=== PATIENT | male | born 1990 | race African-American/Black ===

== ENCOUNTER 2016-12-04 16:56 | Inpatient (IN) | payer OTHER ==
[2016-12-04] MEDS ORDERED: Milk Of Magnesia 30 ML UDCUP PO PRN (18:46)
[2016-12-04] MEDS ORDERED: Mag-Al 1200 mg/1200 mg/30 ML UDCUP PO PRN (18:46)
[2016-12-04] MEDS ORDERED: Loperamide HCl 2 MG CAP PO PRN (18:46)
[2016-12-04] MEDS ORDERED: Ondansetron HCl/PF 4 MG/2 ML Vial IVP PRN (18:46)
[2016-12-04] MEDS ORDERED: Sodium Chloride 0.9% 20 ML ONE (20:09)
[2016-12-04] MEDS ORDERED: Divalproex Sodium 125 mg Sprinkle Capsule PO SCH (21:00)
[2016-12-04] MEDS ORDERED: cefTRIAXone\\ROCEPHIN 2 GM VIAL IVPB SCH (21:00)
[2016-12-04] MEDS: Senokot S 8.6-50 MG TAB PO SCH (21:17)
[2016-12-04] MEDS: traMADol HCl 50 MG TAB PO SCH (21:17)
[2016-12-04] MEDS: Amantadine HCl 100 mg Capsule PO SCH (21:17)
[2016-12-04] MEDS: Baclofen 10 MG TAB PO SCH (21:17)
[2016-12-04] MEDS: Gabapentin 300 MG CAP PO SCH (21:17)
[2016-12-04] MEDS: levETIRAcetam 500 MG TAB PO SCH (21:24)
[2016-12-04] MEDS: cefTRIAXone\\ROCEPHIN 2 GM in Sodium Chloride 0.9% 100 ML IVPB SCH (21:24)
[2016-12-04] MEDS: Valproate Sodium 250 mg/5 ml UD Cup PO SCH (21:25)
[2016-12-04] MEDS ORDERED: traZODone HCl 50 MG TAB PO SCH (23:45)
[2016-12-04] MEDS: Acetaminophen 325 MG TAB PO SCH (23:56)
[2016-12-05] MEDS: traMADol HCl 50 MG TAB PO SCH ×4 (03:20→21:18)
[2016-12-05] MEDS ORDERED: Sodium Chloride 0.9% 20 ML ONE (05:09)
[2016-12-05 05:40] LABS: ALT (SGPT) 11 U/L (8-55); AST (SGOT) 12 U/L (5-34); Albumin 3.5 g/dL (3.5-5.0); Alkaline Phosphatase 62 U/L (40-150); Anion Gap 11 mmol/L (10-20); BUN (Urea Nitrogen) 11 mg/dL (8.9-20.6); Bilirubin, Total 0.2 mg/dL (0.2-1.2); Calc. Creatinine Clearance 137 mL/min (70-130); Calcium 9.4 mg/dL (7.8-10.44); Carbon Dioxide 30 mmol/L (22-29); Chloride 104 mmol/L (98-107); Estimated GFR-MDRD Greater than 90; Glucose 99 mg/dL (70-105); Potassium 4.2 mmol/L (3.5-5.1); Protein, Total 6.5 g/dL (6.0-8.3); Sodium 141 mmol/L (136-145)
[2016-12-05] MEDS: Acetaminophen 325 MG TAB PO SCH ×3 (05:40→18:08)
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
[2016-12-05] MEDS: cefTRIAXone\\ROCEPHIN 2 GM in Sodium Chloride 0.9% 100 ML IVPB SCH ×2 (09:05→21:19)
[2016-12-05] MEDS: Sodium Chloride 0.9% 20 ML ONE (09:05)
[2016-12-05] MEDS: Amantadine HCl 100 mg Capsule PO SCH ×2 (09:20→21:18)
[2016-12-05] MEDS: levETIRAcetam 500 MG TAB PO SCH ×2 (09:21→21:18)
[2016-12-05] MEDS: Senokot S 8.6-50 MG TAB PO SCH ×2 (09:21→21:18)
[2016-12-05] MEDS: Gabapentin 300 MG CAP PO SCH ×3 (09:21→21:18)
[2016-12-05] MEDS: Baclofen 10 MG TAB PO SCH ×4 (09:21→21:18)
[2016-12-05] MEDS: Valproate Sodium 250 mg/5 ml UD Cup PO SCH ×2 (09:21→21:21)
[2016-12-05] MEDS: CLOMIPHENE CITRATE 50 MG PO SCH (09:23)
[2016-12-05] MEDS: traZODone HCl 50 MG TAB PO SCH (21:19)
[2016-12-06] MEDS: Acetaminophen 325 MG TAB PO SCH ×4 (00:05→18:06)
[2016-12-06] MEDS: traMADol HCl 50 MG TAB PO SCH ×4 (03:48→20:39)
[2016-12-06] MEDS: Gabapentin 300 MG CAP PO SCH ×3 (08:32→20:41)
[2016-12-06] MEDS: Senokot S 8.6-50 MG TAB PO SCH ×2 (08:33→20:41)
[2016-12-06] MEDS: Amantadine HCl 100 mg Capsule PO SCH ×2 (08:33→20:40)
[2016-12-06] MEDS: Valproate Sodium 250 mg/5 ml UD Cup PO SCH ×2 (08:33→20:42)
[2016-12-06] MEDS: levETIRAcetam 500 MG TAB PO SCH ×2 (08:33→20:41)
[2016-12-06] MEDS: Baclofen 10 MG TAB PO SCH ×4 (08:33→20:40)
[2016-12-06] MEDS: CLOMIPHENE CITRATE 50 MG PO SCH (08:34)
[2016-12-06] MEDS: cefTRIAXone\\ROCEPHIN 2 GM in Sodium Chloride 0.9% 100 ML IVPB SCH ×2 (08:35→20:41)
[2016-12-06] MEDS: Sodium Chloride 0.9% 20 ML ONE (20:42)
[2016-12-06] MEDS: traZODone HCl 50 MG TAB PO SCH (20:42)
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
[2016-12-07] MEDS: Acetaminophen 325 MG TAB PO SCH ×4 (00:32→20:30)
[2016-12-07] MEDS ORDERED: Sodium Chloride 0.9% 10 ML ONE ×2 (05:03→20:28)
[2016-12-07] MEDS: traMADol HCl 50 MG TAB PO SCH ×2 (05:19→09:00)
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
[2016-12-07] MEDS: Valproate Sodium 250 mg/5 ml UD Cup PO SCH ×2 (09:02→20:39)
[2016-12-07] MEDS: Amantadine HCl 100 mg Capsule PO SCH ×2 (09:02→20:32)
[2016-12-07] MEDS: levETIRAcetam 500 MG TAB PO SCH ×2 (09:03→20:33)
[2016-12-07] MEDS: Baclofen 10 MG TAB PO SCH (09:04)
[2016-12-07] MEDS: Gabapentin 300 MG CAP PO SCH ×3 (09:04→20:33)
[2016-12-07] MEDS: Senokot S 8.6-50 MG TAB PO SCH ×2 (09:04→20:32)
[2016-12-07] MEDS: cefTRIAXone\\ROCEPHIN 2 GM in Sodium Chloride 0.9% 100 ML IVPB SCH ×2 (09:05→20:32)
[2016-12-07] MEDS: CLOMIPHENE CITRATE 50 MG PO SCH (14:37)
[2016-12-07] MEDS: traZODone HCl 50 MG TAB PO SCH (20:33)
[2016-12-07] MEDS: traMADol HCl 50 MG TAB PO PRN (20:34)
[2016-12-08] MEDS: Acetaminophen 325 MG TAB PO SCH ×3 (06:06→17:42)
--- NOTE | 2016-12-08 07:43 | PRG ---
DATE OF SERVICE: 12/08/2016 SUBJECTIVE: The patient feels lethargic, but awakens and has monosyllable answers, but appears to b e much more sedated than this weekend. His Ritalin has not been restarted as has his Klonopin, but he is on gabapentin, Keppra, baclofen and Depakote. OBJECTIVE: Shows his valproic acid level is pending. VITAL SIGNS: Vital signs show blood pressure 106/54, temperature 99.6, pulse 93, respirations 18, O 2 sats 92-96%. LUNGS: Lungs are clear. CARDIAC: Cardiac examination shows regular rhythm. SKIN AND EXTREMITIES: Showed no edema. ASSESSMENT: A 26-year-old black male with a traumatic brain injury distantly and a recurrent epidur al infection on Rocephin until 12/22/2016, but who has significantly lethargic and mother is concer samara that this may be due to a medication. PLAN: Discontinue baclofen, check valproic acid level and restart Ritalin and discussed Juanita hardin with family.
[2016-12-08] MEDS ORDERED: Sodium Chloride 0.9% 10 ML ONE ×2 (08:39→20:49)
[2016-12-08] MEDS: Amantadine HCl 100 mg Capsule PO SCH ×2 (08:42→21:23)
[2016-12-08] MEDS: cefTRIAXone\\ROCEPHIN 2 GM in Sodium Chloride 0.9% 100 ML IVPB SCH ×2 (08:42→21:24)
[2016-12-08] MEDS: Valproate Sodium 250 mg/5 ml UD Cup PO SCH ×2 (08:43→21:26)
[2016-12-08] MEDS: Senokot S 8.6-50 MG TAB PO SCH ×2 (08:43→21:25)
[2016-12-08] MEDS: levETIRAcetam 500 MG TAB PO SCH ×2 (08:43→21:24)
[2016-12-08] MEDS: CLOMIPHENE CITRATE 50 MG PO SCH (08:43)
[2016-12-08] MEDS: Gabapentin 300 MG CAP PO SCH ×3 (08:43→21:24)
[2016-12-08] MEDS: traZODone HCl 50 MG TAB PO SCH (21:25)
[2016-12-08] MEDS: traMADol HCl 50 MG TAB PO PRN (21:26)
[2016-12-09] MEDS: Acetaminophen 325 MG TAB PO SCH ×5 (03:10→23:26)
--- NOTE | 2016-12-09 08:24 | PRG ---
DATE OF SERVICE: 12/09/2016 SUBJECTIVE: The patient lying in bed, sleeping, but awakens to verbal conversation, still lethargic despite having muscle relaxants discontinued and only made p.r.n. He is having an appointment with neurosurgeon tomorrow and family will take out on pass. He has been restarted back on his Ritalin with minimal response at this time. OBJECTIVE: Shows, temperature 97, pulse 84, respirations 18, O2 sats 97%, blood pressure 96/54. In take and output is 1780 in and wearing a diaper. LABORATORY DATA: Shows valproic acid level not toxic at 40 and is subtherapeutic for seizure prophy laxis. ASSESSMENT: 1. Epidural abscess, on Rocephin 2 grams IV q.12 hours until 12/22/2016. Will follow up with neuro surgeon tomorrow. 2. Traumatic brain injury, longstanding with persistent lethargy and sedation, on medications and w e will discontinue trazodone that is being given routinely and only make as needed and we will also consider discontinuation of gabapentin after being seen by neurosurgeon.
[2016-12-09] MEDS: Gabapentin 300 MG CAP PO SCH ×3 (08:59→20:44)
[2016-12-09] MEDS: levETIRAcetam 500 MG TAB PO SCH ×2 (09:00→20:44)
[2016-12-09] MEDS: Senokot S 8.6-50 MG TAB PO SCH ×2 (09:00→20:44)
[2016-12-09] MEDS: Valproate Sodium 250 mg/5 ml UD Cup PO SCH ×2 (09:00→20:43)
[2016-12-09] MEDS: Amantadine HCl 100 mg Capsule PO SCH ×2 (09:01→20:44)
[2016-12-09] MEDS: cefTRIAXone\\ROCEPHIN 2 GM in Sodium Chloride 0.9% 100 ML IVPB SCH ×2 (09:01→20:43)
[2016-12-09] MEDS: CLOMIPHENE CITRATE 50 MG PO SCH (10:00)
[2016-12-09] MEDS ORDERED: Sodium Chloride 0.9% 20 ML ONE (20:36)
[2016-12-09] MEDS ORDERED: Sodium Chloride 0.9% 0 ML ONE (20:36)
[2016-12-09] MEDS: Baclofen 10 MG TAB PO PRN (20:44)
[2016-12-09] MEDS: traZODone HCl 50 MG TAB PO PRN (23:25)
[2016-12-10] MEDS: Acetaminophen 325 MG TAB PO SCH ×3 (05:00→17:18)
[2016-12-10] MEDS: cefTRIAXone\\ROCEPHIN 2 GM in Sodium Chloride 0.9% 100 ML IVPB SCH ×2 (05:00→21:04)
[2016-12-10] MEDS: Valproate Sodium 250 mg/5 ml UD Cup PO SCH ×2 (05:02→21:02)
[2016-12-10] MEDS: Senokot S 8.6-50 MG TAB PO SCH ×2 (05:03→21:03)
[2016-12-10] MEDS: Amantadine HCl 100 mg Capsule PO SCH ×2 (05:03→21:04)
[2016-12-10] MEDS: levETIRAcetam 500 MG TAB PO SCH ×2 (05:03→21:02)
[2016-12-10] MEDS: Gabapentin 300 MG CAP PO SCH ×3 (05:03→17:18)
[2016-12-10] MEDS: CLOMIPHENE CITRATE 50 MG PO SCH (05:03)
[2016-12-10] MEDS ORDERED: Sodium Chloride 0.9% 20 ML ONE (19:58)
[2016-12-10] MEDS: traZODone HCl 50 MG TAB PO PRN (22:39)
[2016-12-11] MEDS: Acetaminophen 325 MG TAB PO SCH ×4 (00:26→17:44)
[2016-12-11] MEDS: cefTRIAXone\\ROCEPHIN 2 GM in Sodium Chloride 0.9% 100 ML IVPB SCH ×2 (09:36→21:24)
[2016-12-11] MEDS: Amantadine HCl 100 mg Capsule PO SCH ×2 (09:37→21:26)
[2016-12-11] MEDS: Senokot S 8.6-50 MG TAB PO SCH ×2 (09:37→21:26)
[2016-12-11] MEDS: levETIRAcetam 500 MG TAB PO SCH ×2 (09:37→21:26)
[2016-12-11] MEDS: Gabapentin 300 MG CAP PO SCH ×3 (09:37→21:26)
[2016-12-11] MEDS: CLOMIPHENE CITRATE 50 MG PO SCH (09:37)
[2016-12-11] MEDS: Valproate Sodium 250 mg/5 ml UD Cup PO SCH ×2 (09:40→21:26)
[2016-12-11] MEDS: traZODone HCl 50 MG TAB PO PRN (21:26)
[2016-12-12] MEDS: Acetaminophen 325 MG TAB PO SCH ×4 (01:33→18:24)
[2016-12-12] MEDS: traMADol HCl 50 MG TAB PO PRN (06:40)
[2016-12-12] MEDS: cefTRIAXone\\ROCEPHIN 2 GM in Sodium Chloride 0.9% 100 ML IVPB SCH ×2 (10:14→20:55)
[2016-12-12] MEDS: Valproate Sodium 250 mg/5 ml UD Cup PO SCH ×2 (10:15→20:55)
[2016-12-12] MEDS: CLOMIPHENE CITRATE 50 MG PO SCH (10:16)
[2016-12-12] MEDS: levETIRAcetam 500 MG TAB PO SCH ×2 (10:16→20:56)
[2016-12-12] MEDS: Gabapentin 300 MG CAP PO SCH ×3 (10:17→20:56)
[2016-12-12] MEDS: Senokot S 8.6-50 MG TAB PO SCH ×2 (10:17→20:56)
[2016-12-12] MEDS: Amantadine HCl 100 mg Capsule PO SCH ×2 (10:17→20:56)
[2016-12-12] MEDS ORDERED: Sodium Chloride 0.9% 10 ML ONE (12:00)
--- NOTE | 2016-12-12 17:47 | PRG ---
DATE OF SERVICE: 12/10/2016 SUBJECTIVE: The patient returned late tonight after visit to [facility] with no referri physician, but the family states there is no change with any of his medications and physician is approval of his progress. The patient is sitting up in the chair, eating slowly with his family. OBJECTIVE: VITAL SIGNS: Blood pressure is 105/58, temperature 96, pulse 79, respirations 18, O2 sats 98%. LUNGS: Clear. CARDIAC: Examination shows regular rhythm. ABDOMEN: Soft, nontender. Incision on craniotomy is healing well with no drainage. No laboratory is available from [facility]. ASSESSMENT: 1. Resolving epidural abscess, on Rocephin 2 gram IV q.12 h. until 12/22/2016. 2. Traumatic brain injury, chronic, with persistent lethargy and sedation, appears to be improved s jose alfredo off trazodone and will discuss gabapentin with family.
--- NOTE | 2016-12-12 17:48 | PRG ---
DATE OF SERVICE: 12/11/2016 SUBJECTIVE: The patient is lying in the bed, resting well. No complaints and no therapy today. OBJECTIVE: VITAL SIGNS: Shows a temperature of 96.8, pulse 76, respirations 18, O2 sats 98% and blood pressure 112/60. LUNGS: Clear. CARDIAC: Showed regular rhythm. ABDOMEN: Soft and nontender. SKIN AND EXTREMITIES: Display no edema, clubbing or cyanosis. ASSESSMENT AND PLAN: A 26-year-old black male with a traumatic brain injury, recurrent epidural inf ection on Rocephin until 12/22/2016. He appears to be slightly improved today, is off trazodone and baclofen and on Ritalin and will continue therapy and discuss followup with the results with Chad and Leilani with family.
[2016-12-12] MEDS: traZODone HCl 50 MG TAB PO PRN (20:56)
[2016-12-13] MEDS: Acetaminophen 325 MG TAB PO SCH ×4 (04:04→17:17)
--- NOTE | 2016-12-13 08:23 | PRG ---
DATE OF SERVICE: 12/12/2016 SUBJECTIVE: The patient was sitting up in the bed, awake, responds appropriately with monosyllables , but appears to be much more alert since discontinued his phenobarbital. OBJECTIVE: VITAL SIGNS: Blood pressure is 108/61, temperature 98, pulse 75, respirations 16, O2 sat 98%. LABO RATORY: Laboratory shows no recent change. We will repeat in the a.m. It was done at [place] and [facility], but no results available. LUNGS: Lungs are clear. CARDIAC: Cardiac examination shows regular rhythm. ABDOMEN: Abdomen is soft and nontender. Craniotomy scar appears to be healed well. ASSESSMENT: 1. Resolving epidural abscess on IV Rocephin until 12/23/2015. 2. Traumatic brain injury with improved functional status post discontinuation of phenobarbital. 3. Bipolar disorder, appears to be stable on clomiphene. PLAN: Repeat CBC, comp metabolic in the a.m. Continue PT, OT. Continue Rocephin until 12/23/2015.
[2016-12-13] MEDS ORDERED: Sodium Chloride 0.9% 20 ML ONE ×2 (08:26→21:33)
[2016-12-13] MEDS: Amantadine HCl 100 mg Capsule PO SCH ×2 (08:39→20:42)
[2016-12-13] MEDS: cefTRIAXone\\ROCEPHIN 2 GM in Sodium Chloride 0.9% 100 ML IVPB SCH ×2 (08:40→20:43)
[2016-12-13] MEDS: traMADol HCl 50 MG TAB PO PRN (08:42)
[2016-12-13] MEDS: levETIRAcetam 500 MG TAB PO SCH ×2 (08:43→20:42)
[2016-12-13] MEDS: Senokot S 8.6-50 MG TAB PO SCH ×2 (08:43→20:42)
[2016-12-13] MEDS: Gabapentin 300 MG CAP PO SCH ×3 (08:43→20:42)
[2016-12-13] MEDS: CLOMIPHENE CITRATE 50 MG PO SCH (08:43)
[2016-12-13] MEDS: Valproate Sodium 250 mg/5 ml UD Cup PO SCH ×2 (08:44→20:42)
[2016-12-13 10:59] LABS: #Basophils 0.2 thou/uL (0.0-0.2); #Eosinphils 0.2 thou/uL (0.0-0.7); #Lymphocytes 1.3 thou/uL (1.20-3.40); #Monocytes 0.6 thou/uL (0.11-0.59); #Neutrophils 3.7 thou/uL (1.40-6.50); %Basophils 2.7 % (0.0-1.0); %Eosinophils 3.2 % (0.0-10.0); %Monocytes 10.7 % (0.0-10.0); %Neutrophils 62.4 % (42.0-75.0); Hemoglobin 13.7 g/dL (14.0-18.0); Mean Corpuscular HGB CONC 31.7 g/dL (32.0-36.0); Mean Corpuscular Hemoglobin 29.8 pg (27.0-31.0); Mean Corpuscular Volume 94.1 fl (80.0-94.0); Mean Platelet Volume 10.4 fL (7.4-10.4); Platelet Count 245 thou/uL (130-400); RBC Distribution Width 12.3 % (11.5-14.5); Red Blood Cell (RBC) Count 4.58 mill/uL (4.70-6.10)
[2016-12-13 11:21] LABS: ALT (SGPT) 27 U/L (8-55); AST (SGOT) 18 U/L (5-34); Albumin 4.2 g/dL (3.5-5.0); Alkaline Phosphatase 79 U/L (40-150); Anion Gap 16 mmol/L (10-20); BUN (Urea Nitrogen) 15 mg/dL (8.9-20.6); Bilirubin, Total 0.2 mg/dL (0.2-1.2); Calc. Creatinine Clearance 118 mL/min (70-130); Carbon Dioxide 28 mmol/L (22-29); Chloride 102 mmol/L (98-107); Estimated GFR-MDRD Greater than 90; Globulin 3.8 g/dL (2.4-3.5); Glucose 96 mg/dL (70-105); Potassium 4.7 mmol/L (3.5-5.1); Sodium 141 mmol/L (136-145)
[2016-12-13] MEDS: traZODone HCl 50 MG TAB PO PRN (20:44)
[2016-12-14] MEDS: Acetaminophen 325 MG TAB PO SCH ×4 (00:13→18:00)
[2016-12-14] MEDS: cefTRIAXone\\ROCEPHIN 2 GM in Sodium Chloride 0.9% 100 ML IVPB SCH ×2 (08:43→19:59)
[2016-12-14] MEDS: CLOMIPHENE CITRATE 50 MG PO SCH (08:43)
[2016-12-14] MEDS: Valproate Sodium 250 mg/5 ml UD Cup PO SCH ×2 (08:44→20:00)
[2016-12-14] MEDS: Senokot S 8.6-50 MG TAB PO SCH ×2 (08:44→20:00)
[2016-12-14] MEDS: Gabapentin 300 MG CAP PO SCH ×3 (08:44→20:00)
[2016-12-14] MEDS: levETIRAcetam 500 MG TAB PO SCH ×2 (08:44→20:00)
[2016-12-14] MEDS: Amantadine HCl 100 mg Capsule PO SCH ×2 (08:44→20:01)
--- NOTE | 2016-12-14 11:34 | PRG ---
DATE OF SERVICE: 12/14/2016 SUBJECTIVE: The patient feels same. He is more awake, alert, however, talking on his phone and eat ing, but not cooperating much with therapy. 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 Did appear to be responding and maybe close to his baseline mental statu s. OBJECTIVE: LUNGS: Clear. CARDIAC EXAMINATION: Shows regular rhythm. NEUROLOGY: Craniotomy incision healing well. LABORATORY: White count yesterday was 6000, hematocrit 43, and hemoglobin 13. Sodium was 141, pota ssium 4.7, chloride 102, bicarbonate 28, BUN 15, and creatinine 0.94. Liver functions normal. ASSESSMENT: 1. Resolving epidural abscess, on IV Rocephin until 12/22/2016. 2. Stable traumatic in brain injury, improved function, appears to be close to baseline. 3. Bipolar disorder, stable on clomiphene. PLAN: Continue physical therapy and occupational therapy. Continue Rocephin until 12/22/2016. Dis cussed discharge planning with family.
[2016-12-14] MEDS: traZODone HCl 50 MG TAB PO PRN (20:03)
[2016-12-15] MEDS: Acetaminophen 325 MG TAB PO SCH ×4 (01:08→18:04)
[2016-12-15] MEDS: cefTRIAXone\\ROCEPHIN 2 GM in Sodium Chloride 0.9% 100 ML IVPB SCH ×2 (08:53→21:26)
[2016-12-15] MEDS: Valproate Sodium 250 mg/5 ml UD Cup PO SCH ×2 (08:55→21:28)
[2016-12-15] MEDS: Gabapentin 300 MG CAP PO SCH ×3 (08:57→21:28)
[2016-12-15] MEDS: CLOMIPHENE CITRATE 50 MG PO SCH (08:57)
[2016-12-15] MEDS: levETIRAcetam 500 MG TAB PO SCH ×2 (08:57→21:28)
[2016-12-15] MEDS: Senokot S 8.6-50 MG TAB PO SCH ×2 (08:57→21:28)
[2016-12-15] MEDS: Amantadine HCl 100 mg Capsule PO SCH ×2 (08:57→21:28)
[2016-12-16] MEDS: Acetaminophen 325 MG TAB PO SCH ×5 (00:04→20:31)
--- NOTE | 2016-12-16 07:23 | PRG ---
DATE OF SERVICE: 12/15/2016 SUBJECTIVE: The patient feels well, sitting up in the bed eating breakfast, responding only with a few words, short sentences. OBJECTIVE: VITAL SIGNS: Temperature 97.8, pulse 84, respirations 18, O2 saturation 98%, blood pressure 99/55. Laminectomy and craniotomy scar appears to be healing well. LUNGS: Lungs are clear. CARDIAC: Cardiac examination shows regular rhythm. PT states that the patient is still requiring maximum total assist for standing frame and will nicholas nue on therapy until antibiotics finished and then facilitate possible transfer back to her [facility] neuro unit.
--- NOTE | 2016-12-16 08:17 | PRG ---
DATE OF SERVICE: 12/16/2016 SUBJECTIVE: The patient feels the same, sitting up in bed, sleeping, but awakens easily. No compla ints, but is basically minimally verbal. OBJECTIVE: VITAL SIGNS: Temperature is 97.4, pulse 68, respirations 16, O2 sats 99, blood pressure 116/64. LABORATORY: Laboratory shows white count 6000, hematocrit 43, hemoglobin 13. Most recent chemistri es several days ago were normal. NEUROLOGICAL: Craniotomy scar healing well. Neurological shows diffuse weakness, but no focal find ings. ASSESSMENT: 1. Resolving traumatic brain injury with epidural abscess, on IV Rocephin until December 22, 2016. 2. Underlying bipolar disorder, stable on Klonopin. 3. Seizure disorder, controlled with valproic acid. PLAN: Continue Rocephin until December 22. Discussed discharge planning and transfer to neuro [facility] t after discharge.
[2016-12-16] MEDS ORDERED: Sodium Chloride 0.9% 20 ML ONE (09:12)
[2016-12-16] MEDS: Gabapentin 300 MG CAP PO SCH ×3 (10:12→20:30)
[2016-12-16] MEDS: CLOMIPHENE CITRATE 50 MG PO SCH (10:12)
[2016-12-16] MEDS: Valproate Sodium 250 mg/5 ml UD Cup PO SCH ×2 (10:12→20:31)
[2016-12-16] MEDS: Senokot S 8.6-50 MG TAB PO SCH ×2 (10:12→20:31)
[2016-12-16] MEDS: Amantadine HCl 100 mg Capsule PO SCH ×2 (10:15→20:29)
[2016-12-16] MEDS: cefTRIAXone\\ROCEPHIN 2 GM in Sodium Chloride 0.9% 100 ML IVPB SCH ×2 (10:15→20:30)
[2016-12-16] MEDS: levETIRAcetam 500 MG TAB PO SCH ×2 (10:15→20:30)
[2016-12-16] MEDS ORDERED: Sodium Chloride 0.9% 10 ML ONE (20:24)
[2016-12-16] MEDS: traMADol HCl 50 MG TAB PO PRN (20:31)
[2016-12-17] MEDS: Acetaminophen 325 MG TAB PO SCH ×4 (06:26→23:46)
[2016-12-17] MEDS: Valproate Sodium 250 mg/5 ml UD Cup PO SCH ×2 (09:47→21:21)
[2016-12-17] MEDS: cefTRIAXone\\ROCEPHIN 2 GM in Sodium Chloride 0.9% 100 ML IVPB SCH ×2 (09:47→21:03)
[2016-12-17] MEDS: Gabapentin 300 MG CAP PO SCH ×3 (09:48→21:21)
[2016-12-17] MEDS: Senokot S 8.6-50 MG TAB PO SCH ×2 (09:48→21:22)
[2016-12-17] MEDS: CLOMIPHENE CITRATE 50 MG PO SCH (09:48)
[2016-12-17] MEDS: Amantadine HCl 100 mg Capsule PO SCH ×2 (09:48→21:22)
[2016-12-17] MEDS: levETIRAcetam 500 MG TAB PO SCH ×2 (09:48→21:22)
--- NOTE | 2016-12-17 10:27 | PRG ---
DATE OF SERVICE: 12/17/2016 SUBJECTIVE: The patient feels well, working with therapy today. No complaints, no real change. OBJECTIVE: VITAL SIGNS: Shows temperature is 97, pulse 63, respirations 16, O2 sats 99%, and blood pressure 11 1/73. LUNGS: Clear. CARDIAC: Examination showed regular rhythm. Craniotomy scar is healing well. NEUROLOGIC: Shows no change. ASSESSMENT: 1. Resolving epidural abscess, on Rocephin until 11/21/2016. 2. Stable traumatic brain injury with improving cooperation since discontinued phenobarbital. 3. Recurrent seizures. No evidence for recurrence, only on valproic acid. 4. Previous history of bipolar disorder, stable. PLAN: Continue PT, OT. Continue IV Rocephin until 12/22/2016.
[2016-12-17] MEDS: traZODone HCl 50 MG TAB PO PRN (21:21)
[2016-12-18] MEDS: Acetaminophen 325 MG TAB PO SCH ×4 (05:47→21:32)
[2016-12-18] MEDS: Sodium Chloride 0.9% 20 ML ONE (07:30)
[2016-12-18 07:35] LABS: #Basophils 0.1 thou/uL (0.0-0.2); #Eosinphils 0.3 thou/uL (0.0-0.7); #Lymphocytes 1.4 thou/uL (1.20-3.40); #Monocytes 0.7 thou/uL (0.11-0.59); %Basophils 1.6 % (0.0-1.0); %Eosinophils 3.9 % (0.0-10.0); %Lymphocytes 21.8 % (21.0-51.0); %Monocytes 10.9 % (0.0-10.0); %Neutrophils 61.9 % (42.0-75.0); Hemoglobin 13.4 g/dL (14.0-18.0); Mean Corpuscular HGB CONC 31.3 g/dL (32.0-36.0); Mean Corpuscular Hemoglobin 29.5 pg (27.0-31.0); Mean Corpuscular Volume 94.2 fl (80.0-94.0); Mean Platelet Volume 9.8 fL (7.4-10.4); Platelet Count 217 thou/uL (130-400); RBC Distribution Width 12.5 % (11.5-14.5); Red Blood Cell (RBC) Count 4.56 mill/uL (4.70-6.10); White Blood Cell (WBC) Count 6.5 thou/uL (4.8-10.8)
[2016-12-18 07:55] LABS: ALT (SGPT) 21 U/L (8-55); AST (SGOT) 14 U/L (5-34); Albumin 3.9 g/dL (3.5-5.0); Alkaline Phosphatase 75 U/L (40-150); Anion Gap 13 mmol/L (10-20); BUN (Urea Nitrogen) 18 mg/dL (8.9-20.6); Bilirubin, Total 0.3 mg/dL (0.2-1.2); Calc. Creatinine Clearance 122 mL/min (70-130); Calcium 9.8 mg/dL (7.8-10.44); Carbon Dioxide 30 mmol/L (22-29); Chloride 104 mmol/L (98-107); Estimated GFR-MDRD Greater than 90; Globulin 3.6 g/dL (2.4-3.5); Glucose 100 mg/dL (70-105); Potassium 4.4 mmol/L (3.5-5.1); Protein, Total 7.5 g/dL (6.0-8.3); Sodium 143 mmol/L (136-145)
[2016-12-18] MEDS: Valproate Sodium 250 mg/5 ml UD Cup PO SCH ×2 (08:50→21:32)
[2016-12-18] MEDS: Senokot S 8.6-50 MG TAB PO SCH ×2 (08:51→21:32)
[2016-12-18] MEDS: Gabapentin 300 MG CAP PO SCH ×3 (08:51→21:32)
[2016-12-18] MEDS: CLOMIPHENE CITRATE 50 MG PO SCH (08:51)
[2016-12-18] MEDS: Amantadine HCl 100 mg Capsule PO SCH ×2 (08:51→21:32)
[2016-12-18] MEDS: levETIRAcetam 500 MG TAB PO SCH ×2 (08:51→21:32)
[2016-12-18] MEDS: cefTRIAXone\\ROCEPHIN 2 GM in Sodium Chloride 0.9% 100 ML IVPB SCH ×2 (08:52→21:31)
[2016-12-18] MEDS: traZODone HCl 50 MG TAB PO PRN (21:32)
[2016-12-19] MEDS: Acetaminophen 325 MG TAB PO SCH ×4 (06:13→21:09)
[2016-12-19] MEDS: cefTRIAXone\\ROCEPHIN 2 GM in Sodium Chloride 0.9% 100 ML IVPB SCH ×2 (08:35→21:03)
[2016-12-19] MEDS: Valproate Sodium 250 mg/5 ml UD Cup PO SCH ×2 (08:36→21:07)
[2016-12-19] MEDS: Sodium Chloride 0.9% 20 ML ONE (08:36)
[2016-12-19] MEDS: levETIRAcetam 500 MG TAB PO SCH ×2 (08:37→21:07)
[2016-12-19] MEDS: Senokot S 8.6-50 MG TAB PO SCH ×2 (08:37→21:07)
[2016-12-19] MEDS: Amantadine HCl 100 mg Capsule PO SCH ×2 (08:37→21:07)
[2016-12-19] MEDS: CLOMIPHENE CITRATE 50 MG PO SCH (08:37)
[2016-12-19] MEDS: Gabapentin 300 MG CAP PO SCH ×3 (08:37→21:07)
[2016-12-19] MEDS: Baclofen 10 MG TAB PO PRN (11:52)
--- NOTE | 2016-12-19 16:20 | PRG ---
DATE OF SERVICE: 12/18/2016 SUBJECTIVE: Patient feels well, lying in bed, no complaints, rested well through the night. Family is asking to take him out on pass today today to visit his grandfather. OBJECTIVE: VITAL SIGNS: Shows temperature 97.8, pulse 63, respirations 16, O2 sats 99%. LUNGS: Clear. CARDIAC EXAMINATION: Shows regular rhythm. ABDOMEN: Soft and nontender. Craniotomy scar is healing well. NEUROLOGICAL: Shows no change with slow, retarded responses to questions, diffusely decreased stren gth, and left-sided weakness. LABORATORY DATA: Shows white count 6500, hematocrit 43, hemoglobin 13, platelet 270. Sodium 143, p otassium 4.4, chloride 104, bicarb 30, BUN 18, creatinine 0.91. ASSESSMENT: 1. Epidural abscess, improving on Rocephin until December 22, 2016. 2. Status post traumatic brain injury with persistent neurological deficits and cognitive defects a ppears to be stabilizing. 3. History of bipolar disorder, controlled on clomiphene. 4. Seizure disorder, controlled on valproic acid.
--- NOTE | 2016-12-19 16:20 | PRG ---
DATE OF SERVICE: 12/19/2016 SUBJECTIVE: The patient feels well, sitting up in a chair, speaking amount of sentences, asking whe n he can be discharged home, was out on pass yesterday with family and did well. OBJECTIVE: Shows, VITAL SIGNS: Temperature is 98, pulse 72, respirations 18, O2 sats 97%, blood pressure 102/62. LUNGS: Clear. CARDIAC EXAMINATION: Shows regular rhythm. ASSESSMENT: 1. Resolving epidural abscess. 2. Stable traumatic brain injury. 3. Stable seizure disorder with no recurrence. 4. Stable bipolar disorder. PLAN: Continue IV Rocephin until December 22 and transfer back to neurological unit.
[2016-12-19 17:18] VITALS: BMI 25.9
[2016-12-19] MEDS: traZODone HCl 50 MG TAB PO PRN (21:07)
[2016-12-20] MEDS: Acetaminophen 325 MG TAB PO SCH ×4 (06:05→22:36)
[2016-12-20] MEDS: cefTRIAXone\\ROCEPHIN 2 GM in Sodium Chloride 0.9% 100 ML IVPB SCH ×2 (10:01→21:36)
[2016-12-20] MEDS: Gabapentin 300 MG CAP PO SCH ×3 (10:02→21:38)
[2016-12-20] MEDS: Senokot S 8.6-50 MG TAB PO SCH ×2 (10:02→21:38)
[2016-12-20] MEDS: Amantadine HCl 100 mg Capsule PO SCH ×2 (10:02→21:38)
[2016-12-20] MEDS: CLOMIPHENE CITRATE 50 MG PO SCH (10:02)
[2016-12-20] MEDS: Valproate Sodium 250 mg/5 ml UD Cup PO SCH ×2 (10:02→21:37)
[2016-12-20] MEDS: levETIRAcetam 500 MG TAB PO SCH ×2 (10:02→21:42)
[2016-12-20] MEDS ORDERED: Sodium Chloride 0.9% 10 ML ONE (11:38)
--- NOTE | 2016-12-20 17:51 | PRG ---
DATE OF SERVICE: 12/20/2016 SUBJECTIVE: The patient feels same, sitting up in the chair, eating, having 1-2 sentences responses , has been cooperating somewhat with PT, but is only able to sit to stand with 2 person assist and w alk 11 feet with ataxic gait with scissoring with standby assistance and cueing. Craniotomy scar is healing well. OBJECTIVE: LUNGS: Clear. CARDIAC: Examination shows regular rhythm. ABDOMEN: Soft and nontender. SKIN AND EXTREMITIES: Showed no edema. ASSESSMENT: 1. Resolving epidural abscess on Rocephin until 12/26/2016 by calculation of 1-month therapy at [facility] s time. 2. Severe traumatic brain injury, status post craniotomy with improvement since admission, decrease d lethargy, but still significant deficits, both cognitive and physical. PLAN: Continue Rocephin until 12/26/2016. Discussed discharge planning with family. Continue PT, OT.
[2016-12-20] MEDS: traZODone HCl 50 MG TAB PO PRN (22:36)
[2016-12-21] MEDS: Acetaminophen 325 MG TAB PO SCH ×4 (05:46→20:55)
[2016-12-21] MEDS: Valproate Sodium 250 mg/5 ml UD Cup PO SCH ×2 (09:00→20:55)
[2016-12-21] MEDS: Amantadine HCl 100 mg Capsule PO SCH ×2 (09:00→20:55)
[2016-12-21] MEDS: CLOMIPHENE CITRATE 50 MG PO SCH (09:01)
[2016-12-21] MEDS: levETIRAcetam 500 MG TAB PO SCH ×2 (09:01→20:55)
[2016-12-21] MEDS: Gabapentin 300 MG CAP PO SCH ×3 (09:01→20:55)
[2016-12-21] MEDS: Senokot S 8.6-50 MG TAB PO SCH ×2 (09:01→20:55)
[2016-12-21] MEDS: cefTRIAXone\\ROCEPHIN 2 GM in Sodium Chloride 0.9% 100 ML IVPB SCH ×2 (09:02→20:53)
[2016-12-21] MEDS ORDERED: Gabapentin 300 MG CAP ONE (13:34)
[2016-12-21] MEDS ORDERED: Acetaminophen 325 MG TAB ONE (14:07)
[2016-12-21] MEDS ORDERED: traMADol HCl 50 MG TAB ONE (15:40)
[2016-12-21] MEDS: traZODone HCl 50 MG TAB PO PRN (20:56)
[2016-12-22] MEDS: Acetaminophen 325 MG TAB PO SCH ×3 (06:16→17:33)
--- NOTE | 2016-12-22 06:28 | PRG ---
DATE OF SERVICE: 12/21/2016 SUBJECTIVE: The patient feels well, sitting up in bed, not responding initially, but then when told he would be going home in the next several days, he asks when. OBJECTIVE: VITAL SIGNS: Blood pressure is 101/56, temperature 96, pulse 65, respirations 16, O2 sat 99%. LUNGS: Lungs are clear. CARDIAC: Cardiac examination shows regular rhythm. ABDOMEN: Abdomen is soft and nontender. SKIN AND EXTREMITIES: Skin and extremities display no edema, clubbing, cyanosis. There is healing craniotomy scars right side of the scalp. ASSESSMENT: 1. Resolving epidural abscess on Rocephin until 12/26/2016. 2. Severe traumatic brain injury, status post craniotomy with improvement and lethargy, but still s ignificant cognitive and physical defects. PLAN: Continue Rocephin until 12/26/2016, discharge planning to arrange facility at that time.
[2016-12-22] MEDS ORDERED: Sodium Chloride 0.9% 20 ML ONE ×2 (08:17→21:58)
[2016-12-22] MEDS: Gabapentin 300 MG CAP PO SCH ×3 (09:07→22:00)
[2016-12-22] MEDS: Valproate Sodium 250 mg/5 ml UD Cup PO SCH ×2 (09:07→21:59)
[2016-12-22] MEDS: Amantadine HCl 100 mg Capsule PO SCH ×2 (09:07→22:00)
[2016-12-22] MEDS: Senokot S 8.6-50 MG TAB PO SCH ×2 (09:07→22:00)
[2016-12-22] MEDS: levETIRAcetam 500 MG TAB PO SCH ×2 (09:07→22:00)
[2016-12-22] MEDS: cefTRIAXone\\ROCEPHIN 2 GM in Sodium Chloride 0.9% 100 ML IVPB SCH ×2 (09:08→22:00)
[2016-12-22] MEDS: CLOMIPHENE CITRATE 50 MG PO SCH (09:08)
[2016-12-22] MEDS: traMADol HCl 50 MG TAB PO PRN (23:10)
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
[2016-12-23] MEDS: Acetaminophen 325 MG TAB PO SCH ×4 (05:33→17:00)
[2016-12-23] MEDS ORDERED: Sodium Chloride 0.9% 20 ML ONE (07:52)
[2016-12-23] MEDS: Amantadine HCl 100 mg Capsule PO SCH ×2 (08:36→20:48)
--- NOTE | 2016-12-23 08:36 | PRG ---
DATE OF SERVICE: 12/23/2016 SUBJECTIVE: The patient feels same, sleeping, but awakens easily and responds to questions with mon osyllables, appears to be in no distress. OBJECTIVE: VITAL SIGNS: Shows blood pressure is 95/40, temperature 97, pulse 65, respirations 20, and O2 sats is 96%. LUNGS: Clear. CARDIAC: Examination showed regular rhythm. ABDOMEN: Soft and nontender. NEUROLOGIC: Shows some spasticity with mild weakness on the left side. LABORATORY DATA: CT scan does show old fluid collection with pockets of air consistent with abscess , but no evidence of acute bleeding. ASSESSMENT: 1. Stable CT scan after a recent fall with no evidence of injury. 2. Resolving epidural abscess. 3. Stable traumatic brain injury. PLAN: Continue IV Rocephin until 12/26/2016. Continue PT, OT. Continue fall precautions.
[2016-12-23] MEDS: CLOMIPHENE CITRATE 50 MG PO SCH (08:37)
[2016-12-23] MEDS: Gabapentin 300 MG CAP PO SCH ×3 (08:37→20:48)
[2016-12-23] MEDS: cefTRIAXone\\ROCEPHIN 2 GM in Sodium Chloride 0.9% 100 ML IVPB SCH ×2 (08:37→20:47)
[2016-12-23] MEDS: Senokot S 8.6-50 MG TAB PO SCH ×2 (08:37→20:49)
[2016-12-23] MEDS: levETIRAcetam 500 MG TAB PO SCH ×2 (08:37→20:49)
--- NOTE | 2016-12-23 08:41 | PRG ---
DATE OF SERVICE: 12/22/2016 SUBJECTIVE: The patient lying in bed, awakens easily, in no distress, has been eating well, not com plaining of any pain, nausea, vomiting. OBJECTIVE: Shows, VITAL SIGNS: Blood pressure is 103/61, temperature is 97, pulse 68, respirations 18, O2 sat is 96%. LUNGS: Clear. CARDIAC EXAMINATION: Shows regular rhythm. ABDOMEN: Soft, nontender. NEUROLOGICAL: Shows some mild left-sided weakness, discoordination, decreased responsiveness with a nswering only in mono syllables. ASSESSMENT: 1. Resolving epidural abscess, on IV Rocephin, until 12/26/2016. 2. 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 3. History of bipolar disorder, stable on medications. PLAN: Continue IV Rocephin until 12/26/2016. Continue PT and OT as tolerated and make arrangements for transfer to neuro unit after IV antibiotics finished.
[2016-12-23] MEDS: Valproate Sodium 250 mg/5 ml UD Cup PO SCH ×3 (09:51→21:17)
[2016-12-23] MEDS ORDERED: Sodium Chloride 0.9% 10 ML ONE (20:41)
[2016-12-24] MEDS: Acetaminophen 325 MG TAB PO SCH ×5 (00:16→23:14)
[2016-12-24] MEDS ORDERED: Sodium Chloride 0.9% 20 ML ONE ×3 (08:09→18:40)
[2016-12-24] MEDS: Valproate Sodium 250 mg/5 ml UD Cup PO SCH ×2 (09:31→21:27)
[2016-12-24] MEDS: CLOMIPHENE CITRATE 50 MG PO SCH (09:32)
[2016-12-24] MEDS: Amantadine HCl 100 mg Capsule PO SCH ×2 (09:32→21:27)
[2016-12-24] MEDS: Gabapentin 300 MG CAP PO SCH ×3 (09:32→21:27)
[2016-12-24] MEDS: cefTRIAXone\\ROCEPHIN 2 GM in Sodium Chloride 0.9% 100 ML IVPB SCH ×2 (09:33→21:28)
[2016-12-24] MEDS: levETIRAcetam 500 MG TAB PO SCH ×2 (09:33→21:27)
[2016-12-24] MEDS: Senokot S 8.6-50 MG TAB PO SCH ×2 (09:34→21:27)
--- NOTE | 2016-12-24 09:53 | PRG ---
DATE OF SERVICE: 12/24/2016 SUBJECTIVE: The patient is sleeping well with no complaints, awakens easily, in no distress. OBJECTIVE: VITAL SIGNS: Blood pressure 112/61, temperature 97, pulse 63, respirations 16, O2 sats 99%. LUNGS: Lungs are clear. CARDIAC: Cardiac examination shows regular rhythm. NEURO: Neurological shows left-sided weakness with overall lethargy, healing right-sided craniotomy scar. ASSESSMENT: 1. Resolving epidural abscess. 2. Distant traumatic brain injury with cognitive and physical defects. 3. Chronic history of bipolar. PLAN: Continue IV antibiotics until 12/26/2016, probable discharge to Neuro Unit on 12/27/2016.
[2016-12-24] MEDS: traZODone HCl 50 MG TAB PO PRN (21:27)
[2016-12-25] MEDS: Acetaminophen 325 MG TAB PO SCH ×3 (05:22→17:55)
[2016-12-25] MEDS ORDERED: Sodium Chloride 0.9% 20 ML ONE (07:24)
[2016-12-25] MEDS: Senokot S 8.6-50 MG TAB PO SCH ×2 (08:05→21:41)
[2016-12-25] MEDS: levETIRAcetam 500 MG TAB PO SCH ×2 (08:05→21:41)
[2016-12-25] MEDS: Valproate Sodium 250 mg/5 ml UD Cup PO SCH ×2 (08:05→21:45)
[2016-12-25] MEDS: Amantadine HCl 100 mg Capsule PO SCH ×2 (08:05→21:41)
[2016-12-25] MEDS: CLOMIPHENE CITRATE 50 MG PO SCH (08:05)
[2016-12-25] MEDS: Gabapentin 300 MG CAP PO SCH ×3 (08:07→21:41)
[2016-12-25] MEDS: cefTRIAXone\\ROCEPHIN 2 GM in Sodium Chloride 0.9% 100 ML IVPB SCH ×2 (08:07→21:50)
--- NOTE | 2016-12-25 15:09 | PRG ---
MEDICAL PROGRESS NOTE DATE OF SERVICE: 12/25/2016 SUBJECTIVE: The patient is sitting outside visiting with family, was awake and alert, but has nonse nsical responses to questions. Family requests a pass to go to hoahaoism with him tomorrow and will be given. OBJECTIVE: VITAL SIGNS: Shows pulse is 80, respirations 18, O2 sats 98% and blood pressure 100/59. LUNGS: Clear. CARDIAC: Examination showed regular rhythm. ABDOMEN: Soft and nontender. SKIN AND EXTREMITIES: Showed no edema. Craniotomy scar healing well. NEUROLOGICAL: Shows awake and alert with left-sided weakness, monosyllable and responses to questio ns. ASSESSMENT: 1. Resolving epidural abscess with antibiotics finished tomorrow. 2. Stable traumatic brain injury. PLAN: Finish antibiotics tomorrow. We will add on pass to [place] tomorrow. Plan to be discharged to family in 2 days.
[2016-12-26] MEDS: Acetaminophen 325 MG TAB PO SCH ×4 (00:41→19:05)
[2016-12-26] MEDS: Valproate Sodium 250 mg/5 ml UD Cup PO SCH ×2 (10:06→21:38)
[2016-12-26] MEDS: cefTRIAXone\\ROCEPHIN 2 GM in Sodium Chloride 0.9% 100 ML IVPB SCH ×2 (10:07→21:38)
[2016-12-26] MEDS: CLOMIPHENE CITRATE 50 MG PO SCH (10:07)
[2016-12-26] MEDS: Amantadine HCl 100 mg Capsule PO SCH ×2 (10:07→21:38)
[2016-12-26] MEDS: levETIRAcetam 500 MG TAB PO SCH ×2 (10:07→21:38)
[2016-12-26] MEDS: Senokot S 8.6-50 MG TAB PO SCH ×2 (10:07→21:38)
[2016-12-26] MEDS: Gabapentin 300 MG CAP PO SCH ×3 (10:07→21:38)
--- NOTE | 2016-12-26 12:58 | PRG ---
DATE OF SERVICE: 12/26/2016 SUBJECTIVE: The patient feels well, he is up going sikh today. No complaints with his family. OBJECTIVE: VITAL SIGNS: Shows blood pressure 100/59, temperature 98, pulse 80, respirations 18, O2 saturation 98%. NEUROLOGICAL: Shows no change with left-sided weakness, difficulty with responses with monosyllable s. LUNGS: Clear. CARDIAC EXAMINATION: Shows regular rhythm. ASSESSMENT: 1. Resolving epidural abscess, last day of antibiotics today. 2. Stable traumatic brain injury. PLAN: Discharge home with family tomorrow to follow up with Neurology.
[2016-12-26] MEDS: traZODone HCl 50 MG TAB PO PRN (21:38)
[2016-12-27] MEDS: Acetaminophen 325 MG TAB PO SCH ×2 (01:27→05:40)
[2016-12-27 08:39] VITALS: BP 112/74; TEMP 97.5
[2016-12-27] MEDS: Amantadine HCl 100 mg Capsule PO SCH (08:45)
[2016-12-27] MEDS: Gabapentin 300 MG CAP PO SCH (08:46)
[2016-12-27] MEDS: CLOMIPHENE CITRATE 50 MG PO SCH (08:46)
[2016-12-27] MEDS: cefTRIAXone\\ROCEPHIN 2 GM in Sodium Chloride 0.9% 100 ML IVPB SCH (08:46)
[2016-12-27] MEDS: levETIRAcetam 500 MG TAB PO SCH (08:46)
[2016-12-27] MEDS: Senokot S 8.6-50 MG TAB PO SCH (08:47)
[2016-12-27] MEDS: Valproate Sodium 250 mg/5 ml UD Cup PO SCH (08:47)
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
== END 2016-12-27 10:50 | DRG 862 ==
LOC: NAV ACUTE 16:56
PROVIDERS: ADMIT Family Medicine; ATTEND Internal Medicine
DX: T81.4XXA Infection following a procedure, initial encounter (principal); G06.0 Intracranial abscess and granuloma; J96.02 Acute respiratory failure with hypercapnia; G81.14 Spastic hemiplegia affecting left nondominant side; Y83.8 Other surgical procedures as the cause of abnormal reaction of the patient, or of later complication, without mention of misadventure at the time of the procedure; R56.9 Unspecified convulsions; R13.10 Dysphagia, unspecified; B96.89 Other specified bacterial agents as the cause of diseases classified elsewhere; F90.1 Attention-deficit hyperactivity disorder, predominantly hyperactive type; F31.9 Bipolar disorder, unspecified; M24.50 Contracture, unspecified joint; Z87.891 Personal history of nicotine dependence; S06.9X0D Unspecified intracranial injury without loss of consciousness, subsequent encounter; V89.2XXD Person injured in unspecified motor-vehicle accident, traffic, subsequent encounter
CPT/HCPCS: 36415; 70450; 80053; 80164; 85025; A4216; C1751; G8978-GP-CM; G8979-GP-CL; G8996-GN-CK; G8997-GN-CI; G8997-GN-CJ; J0696; J7050